=== PATIENT | female | born 2005 | race Caucasian/White ===

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

== ENCOUNTER 2025-04-14 04:07 | Emergency (ER) | payer BC, OTHER ==
[~2025-04-14] VITALS: Ht 162.6 cm; Wt 52.3 kg
--- NOTE | 2025-04-14 04:26 | Physician Documentation ---
History of Present Illness General Chief Complaint: Vaginal Bleeding Stated Complaint: VAGINAL BLEEDING Time Seen by MD: 04:17 History of Present Illness Initial Comments This is a very pleasant 19-year-old female who presents for evaluation of abnormal vaginal bleeding for the last five days. She states that about a month and a week ago she had a chemical done at [facility]. She had fairly heavy bleeding afterwards, had stopped bleeding completely. Four days ago she developed vaginal bleeding that is extremely heavy compared to her usual menstrual cycle. Normally she bleeds fairly lightly for three days. For this particular episode of vaginal bleeding she has been going through 10-12 super plus tampons in 8 hour work shift. It has been especially heavy yesterday. She has been feeling dizzy/lightheaded. 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 The nurse advice her to deal with the ED for evaluation, she originally did not want to come in. When she woke up earlier today she has a fairly heavy gush of blood and decided to come in. Does complain of lightheadedness, however denies chest pain or difficulty breathing. No family history of blood dyscrasias or bleeding disorders, however both her mom and grandma on maternal side bleed and bruise easily. She uses marijuana but denies drug use, denies alcohol use or illicit substances use Medication Reconciliation Allergies: Coded Allergies: ibuprofen (Verified Allergy, Unknown, 07/16/24) Past Medical History Past Medical History: Seizures Review of Systems ROS 10 point review of systems was performed and unless noted above in HPI is negative for acute process/complaint. Physical Exam Physical Exam Vital Signs: Temperature: 97.6, Source: Temporal, Heart Rate: 92, Respiratory Rate: 16, BP: 116/80, Pulse Oximetry: 100, Weight: 52.300 Physical Exam GENERAL: Awake, alert, oriented, GCS 15, no apparent distress, non-toxic appearing, answers questions, follows commands appropriately. Examined in triage, placed in bed 9. HEENT: Atraumatic, normocephalic, pupils equal, extraocular muscles intact, sclerae anicteric, mucus membranes moist, oropharynx is clear, no stridor. NECK: supple, full active range of motion, trachea midline, no thyromegaly, no lymphadenopathy, no JVD. CARDIOVASCULAR: regular rate/rhythm, no murmurs/gallops/rubs, Pulses are 2+ in all extremities and symmetric. Capillary refill less than 2 seconds. PULMONARY: Nonlabored, good air movement ,no respiratory distress, speaking in full sentences, clear to auscultation bilaterally, no wheezing, no ronchi, no rales, no accessory muscle use. GASTROINTESTINAL: Soft, non-tender, non-distended, normal active bowel sounds, no organomegaly, no pulsatile masses, no CVA tenderness. NEUROLOGIC: Lucid with normal mental status. Normal facial symmetry. Moves all extremities symmetrically and with purpose. No truncal ataxia. Speech is fluid without evidence of dysarthria or aphasia, no focal deficits appreciated. MUSCULOSKELETAL: There is full range of motion of all extremities. There is no joint pain or joint swelling or joint erythema. There is no muscle pain or tenderness or swelling. EXTREMITIES: warm, well-perfused, no cyanosis, no clubbing, no edema, no acute deformities. Skin: warm, dry, no rashes or lesions, no jaundice, no petechiae orpurpura. No ecchymosis. PSYCHIATRIC: Normal affect, normal insight, normal concentration. Focused exam: [] Progress Results/Orders Results/Orders Vital Signs 04/14/25 04/14/25 04/14/25 04/14/25 04:12 04:15 05:05 05:51 Temp 97.6 97.6 97.6 Pulse 92 80 73 Resp 16 16 16 B/P (MAP) 116/80 91/63 (72) 101/55 (70) Pulse Ox 100 99 98 O2 Flow Rate 0 0 Laboratory Tests Test 04/14/25 04:46 White Blood Count 9.9 Red Blood Count 4.28 Hemoglobin 12.8 Hematocrit 38.0 Mean Corpuscular Volume 88.8 Mean Corpuscular Hemoglobin 29.8 Mean Corpuscular Hemoglobin Concent 33.5 Red Cell Distribution Width 13.1 Platelet Count 205 Mean Platelet Volume 9.6 Neutrophils (%) (Auto) 50.5 Lymphocytes (%) (Auto) 30.8 Monocytes (%) (Auto) 9.9 Eosinophils (%) (Auto) 7.7 H Basophils (%) (Auto) 1.1 H Neutrophils # (Auto) 5.0 Lymphocytes # (Auto) 3.0 Monocytes # (Auto) 1.0 H Eosinophils # (Auto) 0.8 Basophils # (Auto) 0.1 CBC Comment Prothrombin Time 11.0 INR International Normalized Ratio 1.1 Activated Partial Thromboplast Time 31 Coagulation Comments Sodium Level 141 Potassium Level 3.3 L Chloride Level 107 Carbon Dioxide Level 28.8 Anion Gap 5 L Blood Urea Nitrogen 13 Creatinine 0.61 Estimated GFR/1.73 m2 > 90 BUN/Creatinine Ratio 21.3 H Glucose Level 79 Calcium Level 8.3 L Magnesium Level 1.8 Total Bilirubin 0.5 Aspartate Amino Transf (AST/SGOT) 19 Alanine Aminotransferase (ALT/SGPT) 30 Alkaline Phosphatase 104 Total Protein 6.9 Albumin 3.5 Globulin 3.4 Albumin/Globulin Ratio 1.0 L Human Chorionic Gonadotropin, Qual Negative Chemistry Comments Medical Decision Making Additional information obtaine: N/A Findings Facility Status: ED Holds, [facility] The plan was discussed with the patient, who demonstrates clear understanding of the plan and is in agreement with the plan unless otherwise noted in the chart. All questions have been answered, all concerns were addressed unless otherwise documented. I was available throughout their ED stay for frequent reassessment and questions. Differential Diagnoses (considered and possible or likely): [Dysfunctional vaginal bleeding secondary to idiopathic causes versus side-effect of hormonal imbalance after chemical , less likely to be miscarriage in progress, less likely to be ectopic . Fibroids had also been considerably. Anemia including anemia requiring transfusion has been considerably. Unlikely hemorrhagic shock. Unlikely to be vaginal trauma/laceration. Unlikely malignant neoplasm] ??Differential Diagnoses (considered and unlikely, not requiring evaluation currently): [See above] MDM Data Please see [facility] for the following: Independent Historians and external Records Review. Historian: [Patient] Independent Historians: ?[None] Medication Management: [Reviewed medication list] Social History and determinants: [Reviewed] Please see the body of the note for the following: Any independent interpretations of ECG, imaging studies. All vitals signs/haemodynamics, ordered tests were independently reviewed and interpreted by myself. Nursing triage complaint and vitals reviewed, additional nursing notes were reviewed as available and I agree unless otherwise noted or documented in contradiction in the chart Vital Signs: Independently reviewed Labs: Independently interpreted Imaging: Independently interpreted Old Medical Records: Independently reviewed, see HPI for relevant summary and information Pulse Oximetry: [99%] interpreted as [normal on room air] by me [Mechanical Operator: [Regular Rate, Regular rhythm, no ectopy, NSR] reviewed and interpreted by me] Additionally notably showing: [] Tests considered but not ordered include: [] Social Determinants of Health Impact: Patient was evaluated in [facility] [place] to healthcare due to below par ratio of patient to medical providers. [] Comorbid Conditions Impacting Present Evaluation and Care/Treatment: [Recent chemical ] Management Discussions with other Healthcare Providers: [] Treatment and Disposition Medication Management (Given or considered): [TXA, blood transfusion has been considered]. See EMR for details Consideration for Hospitalization/Escalation/Deescalation of Care: Admission for observation has been considered, [however the patient is able to tolerate p.o., their symptoms are controlled, they are able to rely on oral medications, and their chief complaint/diagnosis can be managed on outpatient basis.] ?ED Course:?[] ?Shared decision making:?[] Code status:?FULL Please see the full Electronic Medical Record for full details of nursing documentation, medications list, other records of complete past medical history and conditions, vital signs, laboratory studies, and any radiologic study interpretations by radiologists. Portions of this note were completed using [employer] dictation software and as a result there may exist minor errors in spelling. I have reviewed elements of past family and social history and agree as included in note. Differential Diagnosis , menstrual bleeding, dysfunctional uterine bleeding, retained products of conception Addendum Sign-out note I received sign-out on this patient at shift change. Briefly: She presents with heavy vaginal bleeding. She had a medication about 5 weeks ago. Pending ultrasound to rule out retained products of conception or other abnormality Pelvic ultrasound: The patient has a ovarian cyst, but no other acute findings. No suggestion of retained products of conception. 7:00 a.m.: Re-evaluation: The patient is resting comfortably in bed. She continues to have bleeding. She denies any other current symptoms. I explained the results of her testing and she feels comfortable going home. We discussed return precautions. No dangerous cause identified for her bleeding. She will continue to monitor, and returns to the ER if she develops worsening symptoms. Arnulfo Seymour MD Departure Time of Disposition: 06:57 Disposition: 01 HOME / SELF CARE / HOMELESS Impression: Primary Impression: Dysfunctional uterine bleeding Condition: Stable Discharge Instructions: Dysfunctional Uterine Bleeding Referrals: NO PRIMARY CARE PROVIDER (PCP) Education Educated: Patient, Family Educated regarding: diagnosis, need for follow up Signature Scribe Signature: No scribe Attestation: The note accurately reflects work and decisions made by me.Jasen Hartley DO 04/14/25 04:26 JASEN HARTLEY DO Apr 14, 2025 04:26 ARNULFO SEYMOUR MD Apr 14, 2025 06:57
[2025-04-14 04:58] LABS: MEAN PLATELET VOLUME 9.6 FL (7.4-10.4); RED CELL DISTRIBUTION WIDTH 13.1 % (11.5-14.5)
[2025-04-14 05:12] LABS: APTT 31 SECONDS (22-32); INR 1.1 INR
[2025-04-14 05:14] LABS: CREATININE 0.61 MG/DL (0.40-0.90); TOTAL CARBON DIOXIDE 28.8 MMOL/L (24-32); eCRCL 122 ML/MIN; eGFR > 90 ML/MIN
[2025-04-14 05:25] LABS: HCG SERUM QL NEGATIVE
[2025-04-14 05:51] VITALS: TEMP 97.6
--- NOTE | 2025-04-14 06:16 | RADIOLOGY REPORT ---
MEDICAL RECORDS NUMBER: [id number] PROCEDURE: US ULTRASOUND PELVIS W/ORWO DPLX Date: 04/14/2025 05:14 AM HISTORY: abdnomal and very heavy vaginal bleeding COMPARISONS: None TECHNIQUE:Transabdominal scanning is utilized. FINDINGS: Uterus: The uterus measures 4.5 cm by 5.8 cm by 4.1 cm. The endometrial stripe measures 4 mL. Right Ovary: 6 cm x 5 cm simple appearing cyst is seen in the right ovary Arterial and venous vascular color and waveforms are with Doppler imaging. Left Ovary: The left ovary appears unremarkable.Arterial and venous vascular color and waveforms are with Doppler imaging. Adnexa: No adnexal masses are seen. No free fluid is seen. IMPRESSION: 1. Large simple appearing cyst in the right ovary. Follow-up is needed 2. Normal appearance of the uterus and left ovary.
[2025-04-14 07:17] VITALS: BP 100/59; PULSE 85; RESP 16; O2SAT 99
== END 2025-04-14 07:19 | disposition home or self-care (01) ==
LOC: ER 04:07
DX: N93.8 Other specified abnormal uterine and vaginal bleeding (principal); R42 Dizziness and giddiness; F12.90 Cannabis use, unspecified, uncomplicated; Z88.6 Allergy status to analgesic agent; Z79.899 Other long term (current) drug therapy
CPT/HCPCS: 36415; 76856; 80053; 83735; 84703; 85025; 85610; 85730; 93976; 99284